=== PATIENT | female | born 1985 | race Hispanic/Latino ===

== ENCOUNTER 2022-11-19 13:16 | Emergency (ER) | payer OTHER ==
[~2022-11-19] VITALS: Ht 160 cm; Wt 52.2 kg
[2022-11-19] MEDS ORDERED: IBUPROFEN 600 MG TAB PO STA (14:15)
[2022-11-19] MEDS ORDERED: CYCLOBENZAPRINE HCL 10 MG TAB PO ONE (14:15)
[2022-11-19] MEDS ORDERED: CYCLOBENZAPRINE HCL 10 MG TAB ONE (14:41)
[2022-11-19] MEDS ORDERED: IBUPROFEN 600 MG TAB ONE (14:41)
[2022-11-19] MEDS ORDERED: CYCLOBENZAPRINE5 MG PO (14:48)
[2022-11-19] MEDS ORDERED: NAPROSYN500 MG PO (14:48)
[2022-11-19] MEDS ORDERED: CEFUROXIME500 MG PO (14:49)
== END 2022-11-19 16:19 | disposition home or self-care (01) ==
LOC: FSED 13:35
DX: M54.2 Cervicalgia (principal); M62.838 Other muscle spasm; M54.50 Low back pain, unspecified; S80.02XA Contusion of left knee, initial encounter; M25.462 Effusion, left knee; V43.62XA Car passenger injured in collision with other type car in traffic accident, initial encounter; Y92.488 Other paved roadways as the place of occurrence of the external cause; N39.0 Urinary tract infection, site not specified; F17.210 Nicotine dependence, cigarettes, uncomplicated
CPT/HCPCS: 72050; 72100; 81003; 81025; 99284